=== PATIENT | male | born 1995 | race Caucasian/White ===

== ENCOUNTER 2022-06-14 17:35 | Emergency (ER) | payer BC ==
[~2022-06-14] VITALS: Ht 182.9 cm; Wt 86.3 kg
[~2022-06-14 17:35] MED LIST: CEPHALEXIN500 M1 PO; CEPHALEXIN500 MG OR; FLONASE NASAL50 MCG; NAPROSYN500 MG PO; NO HOME MEDS; TYLENOL & COD12.5 ML PO
[2022-06-14 19:21] LABS: URINE BILIRUBIN - DIPSTICK NEGATIVE (NEGATIVE); URINE BLOOD DIPSTICK NEGATIVE (NEGATIVE); URINE COLOR YELLOW; URINE GLUCOSE - DIPSTICK NEGATIVE (NEGATIVE); URINE KETONE NEGATIVE (NEGATIVE); URINE LEUK ESTERASE NEGATIVE (NEGATIVE); URINE PROTEIN - DIPSTICK NEGATIVE (NEG-TRACE); URINE SPECIFIC GRAVITY 1.015; URINE UROBILINOGEN - DIPSTICK 0.2 E.U./dL (0.2)
[2022-06-14 19:23] LABS: URINE NITRITE - DIPSTICK NEGATIVE (Negative)
[2022-06-14] MEDS ORDERED: PYRIDIUM200 MG PO (19:50)
[2022-06-14 20:18] VITALS: BP 156/99
== END 2022-06-14 20:40 | disposition home or self-care (01) | DRG 696 ==
LOC: ED 17:35
PROVIDERS: Nurse Practitioner
DX: R30.0 Dysuria (principal)